=== PATIENT | female | born 2000 | race Caucasian/White ===

== ENCOUNTER 2019-05-23 19:38 | Emergency (ER) | payer OTHER ==
[2019-05-23 20:09] LABS: SEGMENTED NEUTROPHILS % 67 % (39-79)
[2019-05-23 20:10] LABS: PLT EST. EST. AGREES W/PLT CT
[2019-05-23] MEDS ORDERED: methylPREDNISolone SOD SUCC 125 MG/2 ML VIAL ONE (20:10)
[2019-05-23 20:12] LABS: eGFR (Non-African) > 60
[2019-05-23] MEDS ORDERED: methylPREDNISolone SOD SUCC 125 MG/2 ML VIAL IVP ONE (20:23)
--- NOTE | 2019-05-23 20:39 | ED Physician Documentation ---
Cardiopulmonary Resuscitation - HISTORIAN Historian: parent (Legal Guardian) - HPI Chief Complaint: CPR (COMMUNICATIONS MAINTAINER) Additional Information: Patient is a 19-year-old female who presents to the ER via [facility]. Witness arrest while at [facility]; there were healthcare professionals on the scene who immediately started CPR until EMS arrived. EMS arrived and hooked patient up to the monitor- she was showing V-Fib- they shocked once and patient responded- upon arrival to the ER patient is awake and appears disoriented. Guardian, Corie- mom, arrives and has Dr. Lepe on the phone from [facility]- she will accept- asked that we contact the transplant line. Patient is awake- she is cooperative but non verbal- but was asking for mom. Witnessed Arrest?: Yes CPR Initiated Prior to MD Arrival?: Yes (At [facility]) Down-Time before ACLS?: 5 (Quality CPR by RN on scene) - INITIAL FINDING Mentation: unresponsive (witnessed collapse) Respirations: no respirations Pulse: absent (per RN on scene) Rhythm: V-Fib (once EMS arrived on scene) - TREATMENT INITIATED COMMUNICATIONS MAINTAINER Oxygen: oxygen (15L NRB) CRP/Thumper: No (Not needed once shocked (on patient- but off)) Defibrillated X: 1 IV Access: No IV Fluids: No - MEDICATIONS GIVEN COMMUNICATIONS MAINTAINER How Many Doses of Epinephrine?: 0 Vasopressin Given?: No Amiodorone Given?: No (Allergic) Sodium Bicarb Given?: No Lidocaine Given?: No - ROS CONST: recent illness (Mom states that pt has had some sinus congestion) EYES/ENT: none CVS/RESP: none GI/: denies: nausea, vomiting MS/SKIN/LYMPH: denies: rash - PAST HX Past History: cardiac disease (Heart transplant 06/16/08) Allergies/Adverse Reactions: Allergies Allergy/AdvReac Type Severity Reaction Status Date / Time amiodarone Allergy Verified 05/23/19 23:30 ibuprofen Allergy Verified 05/23/19 23:30 vancomycin Allergy Verified 05/23/19 23:30 - SOCIAL HX Smoking History: non-smoker Alcohol Use: none Drug Use: none - FAMILY HX Family History: No (adopted) - REVIEWED ASSESSMENTS Nursing Assessment Reviewed: Yes Vitals Reviewed: Yes ED Results Lab/Radiology - Lab Results Lab Results: Lab Results 05/23/19 05/23/1905/23/19 19:40 19:40 19:40 WBC 24.60 K/ul H K/ul (4.00-12.00) RBC 4.71 M/ul M/ul (3.90-5.20) Hgb 14.0 g/dL g/dL (11.5-16.0) Hct 41.9 % % (34.5-46.5) MCV 89.0 fl fl (80.0-100.0) MCH 29.6 pg pg (28.0-34.0) MCHC 33.3 g/dL g/dL (30.0-36.0) RDW 14.9 % H % (11.3-14.3) Plt Count 311 K/mm3 K/mm3 (130-400) Seg Neutrophils % 67 % % (39-79) Lymphocytes % 20 % % (16-50) Monocytes % 8 % % (0-11) Eosinophils % 3 % % (0-7) Platelet Estimate Est. agrees w/plt ct RBC Morph Comment Normal (NORMAL) Sodium 134 mmol/L L mmol/L (137-145) Potassium 3.1 mmol/L L mmol/L (3.5-5.1) Chloride 88 mmol/L L mmol/L (98-107) Carbon Dioxide 24 mmol/L mmol/L (22-30) BUN 15 mg/dL mg/dL (7-17) Creatinine 0.86 mg/dL mg/dL (0.52-1.04) Est GFR ( Amer) > 60 (60 - ) Est GFR (Non-Af Amer) > 60 (60 - ) Glucose 193 mg/dL H mg/dL (74-106) Calcium 8.9 mg/dL mg/dL (8.4-10.2) Total Bilirubin 0.1 mg/dL L mg/dL (0.2-1.3) AST 75 U/L H U/L (15-46) ALT 12 U/L L U/L (13-69) Alkaline Phosphatase 145 U/L H U/L (38-126) Creatine Kinase 103 U/L U/L (30-135) Troponin I 0.032 ng/mL ng/mL (0.012-0.034) Total Protein 7.2 g/dL g/dL (6.3-8.2) Albumin 3.9 g/dL g/dL (3.5-5.0) - Orders Orders: ED Orders Category Date Time Status Continuous EKG monitoring Q30M Care 05/23/19 19:48 Active Continuous Pulse Oximetry Q30M Care 05/23/19 19:[address] IV Lock 1T Care 05/23/19 19:48 Active CHEST 1VIEW [RAD] Stat Exams 05/23/19 Ordered CBC/PLATELET/DIFF Routine Lab 05/23/19 19:40 Completed CMP Routine Lab 05/23/19 19:40 Completed CREATINE KINASE Routine Lab 05/23/19 19:40 Completed PT-INR Routine Lab 05/23/19 Ordered TROPONIN I Stat Lab 05/23/19 19:40 Completed methylPREDNISolone SOD SUCC [SOLU-Medrol] Med 05/23/19 20:23 Discontinued 100 mg IVP NOW ONE methylPREDNISolone SOD SUCC [SOLU-Medrol] Med 05/23/19 20:10 Discontinued 125 mg .ROUTE .STK-MED ONE Oxygen Daily Oxygen 05/23/19 20:00 Ordered EKG WITH COMPARISON Stat Ther 05/23/19 19:48 Ordered Chest Pain Physical Exam - EXAM General Appearance: other (disoriented) EENT: eye inspection normal, ENT inspection normal, pharynx normal, MICHAEL Neck: nml inspection, other (old trach scar) Respiratory: nml breath sounds CVS: irregularly irreg. rhythm, tachycardia Abdomen: normal bowel sounds, other (scar from G-Tube) Skin: warm/dry, pallor Neuro: disoriented (but cooperative) Discharge Clincal Impression: Successful cardiopulmonary resuscitation Referrals: Cindy Morgan MD [Primary Care Provider] - 2 Days Additional Instructions: Spoke with Dr. Lepe, Research Greenhouse Supervisor with [facility] transplant team- she will accept- sent through transfer line EMS had dispatched for [facility] and are in flight prior to EMS arrival Spoke on conference call to [facility] Transplant team, geologist petroleum, ICU, and Coordinator- only treatment recommended was Solumedrol 1mg/kg for sinus congestion (stated by mom). VSS, Patient awake on transfer, talking and speaking full sentences and interacting with mom. Patient transferred via [facility] to [facility] Condition: Stable Disposition: 02 XFER SHT-TRM HOSP Decision to Admit: NO Decision Time: 23:50
--- NOTE | 2019-05-23 21:02 | Diagnostic Imaging Report ---
JIA FAUST [facility] [id number] [facility] [address] [address] Report Submission Date: May 23, 2019 8:59:06 PM CDT Patient Study Name: YAJAIRA COLEMAN Date: May 23, 2019 7:54:43 PM CDT Modality Type: DX Gender: F Description: CHEST 1VIEW : 89 Institution: [facility] Physician: JIA FAUST Examination: 1V chest History: Evaluate lungs. Cardiac arrest. Comparison exam: None available. Findings: Single view of the chest demonstrates a mildly prominent cardiac and mediastinal silhouette. Sternotomy wires. Cardiac stent. Diffuse parenchymal haziness, right greater than left. No blunting of the costophrenic margins. Defibrillator pad. Left rib cortical irregularites suggesting old fractures. Impression: Diffuse parenchymal haziness: Right greater than left - infiltrates versus increased volume status. Electronically signed on May 23, 2019 8:59:06 PM CDT by: Floyd GOODWIN
[2019-05-24 00:14] VITALS: BP 98/69
== END 2019-05-23 20:16 | disposition short-term general hospital (02) ==
LOC: ED 19:38
DX: I46.9 Cardiac arrest, cause unspecified (principal)
CPT/HCPCS: 71045; 80053; 82550; 84484; 85025; 96374; 99283; 99284; S1016